=== PATIENT | male | born 1960 | race Asian ===

== ENCOUNTER 2019-08-18 22:31 | Emergency (ER) | payer BC ==
[~2019-08-18] VITALS: Ht 167.6 cm; Wt 77.1 kg
[2019-08-19 00:54] VITALS: BP 133/57
[2019-08-19] MEDS ORDERED: DexAMETHasone SOD PHOS 10MG/1ML VIAL INJ IM ONE (01:30)
[2019-08-19] MEDS ORDERED: ACETAMINOPHEN/CODEINE#3 (300/30mg) TAB PO ONE (01:30)
== END 2019-08-19 02:00 | disposition home or self-care (01) ==
LOC: ER 22:34
DX: J06.9 Acute upper respiratory infection, unspecified (principal); R50.9 Fever, unspecified
CPT/HCPCS: 96372; 99283; J1100